=== PATIENT | male | born 1995 | race Caucasian/White ===

== ENCOUNTER 2019-06-05 14:15 | Emergency (ER) | payer BC ==
[2019-06-05 14:28] VITALS: BP 147/52
--- NOTE | 2019-06-05 14:43 | UC ---
General HPI - HPI Summary HPI Summary: pt rolled his R ankle yesterday when he stepped off his porch. he is c/o pain and swelling. the Lacrosse application trainer applied an michael and splint plus advise he get an xray. - History of Current Complaint Chief Complaint: UCLowerExtremity Stated Complaint: RIGHT ANKLE SPORTS INJURY Time Seen by Provider: 06/05/19 14:32 Hx Obtained From: Patient Pain Intensity: 6 Associated Signs & Symptoms: Positive: Edema. Negative: Fever, Weakness - Allergy/Home Medications Allergies/Adverse Reactions: Allergies Allergy/AdvReac Type Severity Reaction Status Date / Time No Known Allergies Allergy Verified 06/05/19 14:26 Home Medications: Home Medications FLUoxetine CAP* [PROzac CAP*] 20 mg PO DAILY 06/05/19 [History Confirmed ] PMH/Surg Hx/FS Hx/Imm Hx Psychological History: Depression - Surgical History Surgical History: Yes Surgery Procedure, Year, and Place: RIGHT FOOT- PLATE & 4 SCREWS - Family History Known Family History: Positive: Non-Contributory - Social History Occupation: Student Lives: Dormitory/Roommates Alcohol Use: Rare Substance Use Type: None Smoking Status (MU): Never Smoked Tobacco Review of Systems All Other Systems Reviewed And Are Negative: No Constitutional: Negative: Fever Skin: Negative: Rash Musculoskeletal: Positive: Edema - R ankle. Negative: Decreased ROM Neurological: Negative: Weakness, Paresthesia, Numbness Physical Exam Triage Information Reviewed: Yes Appearance: Well-Appearing Vital Signs: Initial Vital Signs Temp 97.9 F 06/05/19 14:26 Pulse 57 06/05/19 14:26 Resp 16 06/05/19 14:26 BP 147/52 06/05/19 14:26 Pulse Ox 98 06/05/19 14:26 Vital Signs Reviewed: Yes Cardiovascular: Positive: RRR Musculoskeletal: Positive: Other: - RLE: hip, knee, achilles and foot are non tender. R ankle with lateral swelling and tenderness. ROM to ankel intact. Foot has full s/v/m function. Neurological: Positive: Alert Psychological: Positive: Age Appropriate Behavior Skin Exam: Normal Diagnostics - Radiology No standard instances Radiology Interpretation Completed By: Radiologist - IMPRESSION: NO ACUTE OSSEOUS INJURY. IF SYMPTOMS PERSIST, RECOMMEND REPEAT IMAGING. Course/Dx - Differential Dx - Multi-Symptom Differential Diagnoses: Other - no fx/dislocation - Diagnoses Provider Diagnosis: Sprain of right ankle Discharge ED - Sign-Out/Discharge Documenting (check all that apply): Patient Departure All imaging exams completed and their final reports reviewed: Yes - Discharge Plan Condition: Stable Disposition: HOME Patient Education Materials: Ankle Sprain (ED) Referrals: Shane Phan MD [Medical Doctor] - 7 Days Additional Instructions: CONTINUE TO USE THE MICHAEL WRAP AND ANKLE STIRRUP SPLINT UNTIL CLEARED - Billing Disposition and Condition Condition: STABLE Disposition: Home
== END 2019-06-05 15:14 | disposition home or self-care (01) ==
LOC: UCCORT 14:15
DX: S93.401A Sprain of unspecified ligament of right ankle, initial encounter (principal); X50.1XXA Overexertion from prolonged static or awkward postures, initial encounter; Y92.008 Other place in unspecified non-institutional (private) residence as the place of occurrence of the external cause; F32.9 Major depressive disorder, single episode, unspecified
CPT/HCPCS: 99201; G0463